=== PATIENT | female | born 1945 | race Caucasian/White ===

== ENCOUNTER 2017-12-28 10:02 | Outpatient (CLI) | payer MEDICARE ==
[~2017-12-28 10:02] MED LIST: AMBIEN10 MG PO; AMBIEN5 MG PO; CALTRATE-600600 MG PO; COLACE100 MG PO; COVERA-HS240 MG PO; MILK OF MAGNESI30 ML PO; MIRALAX17 GM PO; NORCO 10/325 TA1 TA1 PO; PRAVACHOL40 MG PO; PRINIVIL20 MG PO; TRI-VI-SOL50 ML PO; VERELAN120 MG PO; VICODIN ES 7.51 EAC1 PO; ZANAFLEX4 MG PO
== END 2017-12-28 10:03 | disposition home or self-care (01) ==
LOC: D.MAMMO 10:02
DX: N64.89 Other specified disorders of breast (principal)

== ENCOUNTER 2018-08-13 10:38 | Outpatient (CLI) | payer MEDICARE ==
[~2018-08-13] VITALS: Ht 152.4 cm; Wt 45.5 kg
[2018-08-13 11:53] VITALS: BP 135/55; Ht 152.4 cm; Wt 45.5 kg
--- NOTE | 2018-08-13 13:11 | NUR ---
PT LEFT UNIT AMBULATING AT 1311
== END 2018-08-13 13:11 | disposition home or self-care (01) ==
LOC: D.OPS 10:38
DX: M81.0 Age-related osteoporosis without current pathological fracture (principal)

== ENCOUNTER 2020-01-20 05:12 | Emergency (ER) | payer MEDICARE ==
[~2020-01-20] VITALS: Ht 152.4 cm; Wt 40.9 kg
[2020-01-20 05:15] VITALS: Ht 152.4 cm; Wt 40.9 kg
[2020-01-20] MEDS ORDERED: TRAZODONE HCL150 MG PO (05:16)
[2020-01-20] MEDS ORDERED: GABAPENTIN100 MG PO (05:19)
[2020-01-20] MEDS ORDERED: TRIAMTERENE-HC1 EAC3 PO (05:19)
[2020-01-20] MEDS ORDERED: BACLOFEN10 MG PO (05:20)
[2020-01-20] MEDS ORDERED: K-PHOS ORIGINA500 MG PO (05:20)
[2020-01-20] MEDS ORDERED: FLOMAX0.4 MG PO (05:20)
[2020-01-20 07:14] LABS: BASOPHILS 0.2 % (0-2); HEMATOCRIT 31.8 % (36.0-48.0); HEMOGLOBIN 10.3 g/dL (12-16); IMMATURE GRANULOCYTES 0.3 % (0-5); LYMPHOCYTES 7.5 % (15-50); MCH 29.9 pg (26.0-34.0); MCHC 32.4 g/dL (31.0-37.0); MCV 92.2 fL (80.0-100.0); MEAN PLATELET VOLUME 8.1 fL (7.4-10.4); MONOCYTES 4.4 % (2-11); NEUTROPHILS 86.6 % (40-80); RBC 3.45 10x6/uL (4.00-5.40); RDW 12.3 % (11.5-14.5); WBC 11.9 10x3/uL (4.8-10.8)
[2020-01-20 07:21] LABS: ALBUMIN 3.5 g/dL (3.4-5.0); ANION GAP 7.9 mmol/L (8-16); BILIRUBIN - TOTAL 0.22 mg/dL (0.2-1.3); CALCIUM 8.9 mg/dL (8.5-10.1); CARBON DIOXIDE 32.6 mmol/L (21.0-32.0); CREATININE - SERUM 1.4 mg/dL (0.6-1.3); POTASSIUM - SERUM 3.5 mmol/L (3.5-5.1); PROTEIN - SERUM 6.8 g/dL (6.4-8.2)
[2020-01-20 07:33] LABS: PLATELET COUNT 208 10x3/uL (130-400)
[2020-01-20 08:01] LABS: BILIRUBIN NEGATIVE (NEGATIVE); GLUCOSE NEGATIVE (NEGATIVE); KETONE NEGATIVE (NEGATIVE); NITRITE NEGATIVE (NEGATIVE); SPECIFIC GRAVITY 1.015 (1.005-1.020); UROBILINOGEN NORMAL (NORMAL)
[2020-01-20 09:15] VITALS: BP 132/60
== END 2020-01-20 09:15 | disposition home or self-care (01) ==
LOC: D.ER 05:12
PROVIDERS: Emergency Medicine
DX: S09.90XA Unspecified injury of head, initial encounter (principal); S40.012A Contusion of left shoulder, initial encounter; M25.512 Pain in left shoulder; R55 Syncope and collapse; I10 Essential (primary) hypertension; W18.2XXA Fall in (into) shower or empty bathtub, initial encounter; Y93.9 Activity, unspecified; Y92.9 Unspecified place or not applicable

== ENCOUNTER → 2020-03-04 23:59 | Outpatient (CLI) | payer MEDICARE ==
[2020-01-20 05:15] VITALS: BMI 17.6
[~2020-03-04 23:59] MED LIST changes: +BACLOFEN10 MG PO; +FLOMAX0.4 MG PO; +GABAPENTIN100 MG PO; +K-PHOS ORIGINA500 MG PO; +TRAZODONE HCL150 MG PO; +TRIAMTERENE-HC1 EAC3 PO
== END | disposition home or self-care (01) ==
LOC: D.MAMMO 15:45
PROVIDERS: ATTEND Family Medicine
DX: Z12.31 Encounter for screening mammogram for malignant neoplasm of breast (principal)